=== PATIENT | male | born 1950 | race African-American/Black ===

== ENCOUNTER 2019-09-30 13:21 | Outpatient (CLI) | payer OTHER ==
[2019-09-30 10:43] LABS: #Eosinphils 0.2 thou/uL (0.0-0.7); #Lymphocytes 1.6 thou/uL (1.20-3.40); #Monocytes 0.6 thou/uL (0.11-0.59); %Basophils 0.4 % (0.0-1.0); %Eosinophils 2.4 % (0.0-10.0); %Lymphocytes 21.7 % (21.0-51.0); %Monocytes 7.8 % (0.0-10.0); %Neutrophils 67.7 % (42.0-75.0); Hemoglobin 14.7 g/dL (14.0-18.0); Mean Corpuscular HGB CONC 32.8 g/dL (32.0-36.0); Mean Corpuscular Hemoglobin 30.2 pg (27.0-31.0); Mean Corpuscular Volume 91.9 fL (78.0-98.0); Mean Platelet Volume 9.1 fL (7.4-10.4); Platelet Count 126 thou/uL (130-400); Red Blood Cell (RBC) Count 4.87 mill/uL (4.70-6.10); White Blood Cell (WBC) Count 7.4 thou/uL (4.8-10.8)
[2019-09-30 10:50] LABS: Prothrombin Time 13.5 SEC (12.0-14.7)
[2019-09-30 11:03] LABS: Anion Gap 13 mmol/L (10-20); BUN (Urea Nitrogen) 10 mg/dL (8.4-25.7); Calc. Creatinine Clearance 0 mL/min (70-130); Calcium 9.1 mg/dL (7.8-10.44); Carbon Dioxide 24 mmol/L (23-31); Chloride 110 mmol/L (98-107); Estimated GFR-MDRD 55; Glucose 87 mg/dL (80-115); Potassium 3.8 mmol/L (3.5-5.1); Sodium 143 mmol/L (136-145)
[2019-09-30 12:00] LABS: Bilirubin Negative (Negative); Blood, Urine Negative (Negative); Clarity Clear (Clear); Glucose, Urine (Dipstick) Normal (Negative); Leukocyte Negative Leu/uL (Negative); Nitrite Negative (Negative); Protein, Urine (Dipstick) Negative (Neg-Trace); RBC/HPF 0-3 HPF (0-3); Squamous Epithelial None Seen HPF (0-3); Urobilinogen Normal mg/dL (Less than 2); WBC/HPF 0-3 HPF (0-3)
[2019-09-30 12:17] LABS: Bacteria/HPF None Seen HPF (None Seen)
== END 2019-09-30 13:22 | disposition home or self-care (01) ==
LOC: LABBT 13:21
PROVIDERS: ATTEND Orthopaedic Surgery
DX: Z01.818 Encounter for other preprocedural examination (principal); M17.11 Unilateral primary osteoarthritis, right knee
CPT/HCPCS: 80048; 81001; 85025; 85610; 87081; 93005; 93010

== ENCOUNTER 2019-10-19 05:36 | Inpatient (IN) | payer OTHER ==
[2019-09-30 08:50] VITALS: BMI 25.0
[2019-10-19] MEDS ORDERED: Tranexamic Acid 1,000 MG/10 ML VIAL ONE (05:53)
[2019-10-19] MEDS ORDERED: Sodium Chloride 0.9% 100 ML ONE (05:53)
[2019-10-19] MEDS ORDERED: Vancomycin 1.5 GRAM/300 ML BAG 1.5 GM in Premix Bag 1 BAG IVPB SCH (06:00)
[2019-10-19] MEDS ORDERED: Fentanyl 100 MCG/2 ML VIAL ONE ×3 (06:08→09:50)
[2019-10-19] MEDS ORDERED: Midazolam HCl 2 mg/2 ml Vial ONE (06:27)
[2019-10-19] MEDS ORDERED: Lidocaine 1% (PF) 30 ML VIAL ONE (06:28)
[2019-10-19] MEDS ORDERED: HYDROcodone/Acetaminophen 10/325 mg Tablet PO PRN ×3 (06:59→07:22)
[2019-10-19] MEDS ORDERED: Ondansetron PF 4 MG/2 ML Vial IVP PRN ×2 (06:59→07:22)
[2019-10-19] MEDS ORDERED: Promethazine HCl 25 MG/ML VIAL IM PRN ×3 (06:59→08:47)
[2019-10-19] MEDS ORDERED: diphenhydrAMINE 25 MG CAP PO PRN (06:59)
[2019-10-19] MEDS ORDERED: Acetaminophen 325 MG TAB PO PRN ×2 (06:59→07:25)
[2019-10-19] MEDS ORDERED: Zolpidem Tartrate 5 MG TAB PO PRN ×2 (06:59→07:22)
[2019-10-19] MEDS ORDERED: Famotidine/PF 20 mg/2ml Vial ONE (07:09)
[2019-10-19] MEDS ORDERED: Ropivacaine HCl/PF 250 ML in Premix Bag 1 BAG NERVE BLCK SCH (07:22)
[2019-10-19] MEDS ORDERED: Fentanyl 100 MCG/2 ML VIAL SLOW IVP PRN (07:22)
[2019-10-19] MEDS ORDERED: traMADol HCl 50 MG TAB PO PRN ×2 (07:22)
[2019-10-19] MEDS ORDERED: Ondansetron HCl/PF 4 MG/2 ML Vial IVP PRN (08:47)
[2019-10-19] MEDS ORDERED: Promethazine HCl 25 MG/ML VIAL SLOW IVP PRN (08:47)
[2019-10-19] MEDS ORDERED: Aspirin 81 mg Enteric Coated Tablet PO SCH (09:00)
[2019-10-19] MEDS ORDERED: Lisinopril/Hydrochlorothiazide 10 mg/12.5 mg Tablet PO SCH (09:00)
[2019-10-19] MEDS ORDERED: PROPOFOL 200 MG/20 ML VIAL ONE (09:45)
[2019-10-19] MEDS ORDERED: Bupivacaine HCl 0.5%/Epinephrine 1:200,000/PF 30 ml Vial ONE (09:45)
[2019-10-19] MEDS ORDERED: ePHEDrine/0.9% NaCl/PF SYRINGE 50 mg/10 ml ONE (09:45)
[2019-10-19] MEDS ORDERED: Lidocaine 1% PF 5 ML VIAL ONE (09:45)
[2019-10-19] MEDS ORDERED: Dexamethasone 20 MG/5 ML VIAL ONE (09:45)
[2019-10-19] MEDS ORDERED: Ondansetron PF 4 MG/2 ML Vial ONE (09:45)
[2019-10-19] MEDS ORDERED: Ropivacaine 0.2% HCl/PF (40 MG/20 ML VIAL) ONE (09:45)
--- NOTE | 2019-10-19 10:12 | RAD ---
RIGHT KNEE 2 VIEWS: HISTORY: Total knee arthroplasty. FINDINGS/IMPRESSION: There are recent postop changes of total knee arthroplasty in good position and alignment. Soft tiss ue air is present. Healed fracture deformity of the right proximal fibula shaft is unchanged since . POS: OFF
--- NOTE | 2019-10-19 10:31 | OP ---
DATE OF PROCEDURE: 10/19/2019 PREOPERATIVE DIAGNOSIS: Degenerative joint disease, right knee. POSTOPERATIVE DIAGNOSIS: Degenerative joint disease, right knee. PROCEDURE PERFORMED: Right total knee arthroplasty using Keven Triathlon 5 femur, 6 tibia, 9 mm CS X3 polyethylene and A38 patella. PROCEDURE IN DETAIL: After informed consent was obtained in the preoperative holding area, the patient was taken to the operative suite where general anesthesia was induced. Once adequate level of general anesthesia was obtained, the patient was positioned and a well-padded tourniquet was placed around the right proximal thigh. The right lower extremity was then prepped and draped in the usual sterile fashion. Prior to exsanguination, a time-out was called and all members of the surgical team agreed upon site, surgeon, and patient. The extremity was then exsanguinated and the tourniquet was raised. A midline longitudinal incision was then made directly over the patella extending 2 fingerbreadths above the superior pole of the patella and 2 fingerbreadths inferior to the inferior patellar pole of the patella. Deeper subcutaneous layers were dissected sharply and local bleeding was controlled with Bovie electrocautery. A quad tendon longitudinal split was then made sharply and a median parapatellar arthrotomy was carried out both sharp and with Bovie electrocautery, carried down to 1 fingerbreadth medial to the tibial tubercle. The knee was then placed into flexion and the patella was everted nicely, and a copious fat pad ectomy was performed allowing for greater exposure of the tibia. The computer-assisted distal femoral fiducial was then placed and pinned firmly, and the distal femoral cutting guide was pinned firmly into place. The oscillating saw was then used to remove the appropriate amount of bone. The 4-in-1 cutting block was then placed on the distal femur and the oscillating saw was used to remove the appropriate amount of bone off the anterior, posterior, and chamfer cuts. After completion of bone cuts, the anterior cruciate ligament was resected sharply and the posterior cruciate ligament retractor was placed and the tibia was subluxed for better exposure. Partial meniscectomies were carried out, and the tibial computer-assisted fiducial was pinned, and the cutting guide was placed. Oscillating saw was then used to remove the bone, with Hohmann retractors used to take care and protect the collateral ligaments. After the tibial resection was performed, a laminar air intercept controller was placed in between the freshened bone cuts. The knee placed at 90 degrees and further bilateral meniscectomies were carried out, and the curved osteotome and curettage were used to remove any excess bone spurs in the posterior compartment. The trial femoral component, tibial baseplate were placed with the appropriate polyethylene trial insert with an appropriate polyethylene spacer and patellar button. The knee was taken through full range of motion with flexion and extension from 0 to 90 degrees and patellar broach squarely in the trochlea without any squinting or subluxation noted. The knee was also stable to varus and valgus stressing at 0, 15, 45, and 90 degrees of flexion. The drawer was negative. All trial components were then removed and the keel punch was used to provide the appropriate defect in the tibia with a mallet. The freshened bone cuts were copiously irrigated with pulsatile lavage of about 1.5 L to remove all excess debris. The freshened bone cuts were then dried with suction and lap sponge. The knee was placed in flexion and retractors were placed to provide access to all bone cuts. Tobramycin-impregnated methyl methacrylate cement was then placed on the freshened bone cuts and implants which were malleted firmly into place. Curettage and [place] elevators were used to remove any excess bone cement. The knee was placed into full extension and the patellar button was placed under compression, and the cement was allowed to cure. Once completed, the components were again taken through full range of motion and copious irrigation of the knee was carried out with another liter of normal saline. All components were inspected fully with full range of motion and varus and valgus stressing. There was no laxity noted and full extension was observed clinically. Primary closure was accomplished with #2 interrupted Vicryl stitch of the arthrotomy defect. This was oversewn with a #2 running Quill barbed stitch. The gravitational platelet system was then injected into the arthrotomy prior to closure. The subcutaneous layer was then closed with a running 0 barbed Monocryl stitch and skin closure accomplished with a running subcuticular 3-0 Monocryl barbed Quill stitch and augmented with cement on the skin. Tourniquet was lowered. Good spontaneous return of distal pulses was noted clinically and a sterile dressing was applied to the incision. The procedure was terminated without any complications. The patient was awakened in the operative suite, and the patient was taken to the recovery room in stable condition. FOUNDRY PATTERNMAKER: Lillie Mejias PA-C Job ID: [id number]
[2019-10-19] MEDS: Allopurinol 100 MG TAB PO SCH ×2 (10:50→20:26)
[2019-10-19] MEDS: Sodium Chloride 0.9% 1,000 ML IV SCH ×3 (10:50→20:41)
[2019-10-19] MEDS: Famotidine 20 MG TAB PO SCH ×2 (10:51→20:26)
[2019-10-19] MEDS: Aspirin 81 mg Enteric Coated Tablet PO SCH ×2 (10:51→20:26)
[2019-10-19] MEDS ORDERED: Prevnar 13-Val Conj/PF 0.5 ML SYRINGE IM ONE (11:30)
[2019-10-19] MEDS: Ketorolac Tromethamine 30 MG/ML VIAL IVP SCH ×3 (11:50→23:28)
[2019-10-19] MEDS: CEFAZOLIN 2 GM in Premix Bag 1 BAG IVPB SCH ×2 (13:56→20:26)
[2019-10-19] MEDS: HYDROcodone/Acetaminophen 10/325 mg Tablet PO PRN (15:01)
--- NOTE | 2019-10-19 15:14 | PDOC.HOSPP ---
- Subjective Encounter Date: 10/19/19 Encounter Time: 14:00 Subjective: Patient seen and examined. No new complaints. s/p Rt TKR consulted for medical management - Objective Vital Signs & Weight: Vital Signs (12 hours) Temp Pulse Resp BP Pulse Ox 10/19/19 10:51 65 10/19/19 10:20 98.4 F 65 20 146/71 H 93 L Weight Weight 179 lb Additional Labs: old labs reviewed Radiology Reviewed by me: Yes (Knee xray) EKG Reviewed by me: Yes (NSR) Hospitalist ROS - Review of Systems Eyes: denies: pain, vision change, conjunctivae inflammation, eyelid inflammation, redness, other ENT: denies: ear pain, ear discharge, nose pain, nose discharge, nose congestion , mouth pain, mouth swelling, throat pain, throat swelling, other Respiratory: denies: cough, dry, shortness of breath, hemoptysis, SOB with excertion, pleuritic pain, sputum, wheezing, other Cardiovascular: denies: chest pain, palpitations, orthopnea, paroxysmal noc. dyspnea, edema, light headedness, other Gastrointestinal: denies: nausea, vomiting, abdominal pain, diarrhea, constipation, melena, hematochezia, other Genitourinary: denies: dysuria, frequency, incontinence, hematuria, retention, other Musculoskeletal: denies: neck pain, shoulder pain, arm pain, back pain, hand pain, leg pain, foot pain, other Skin: denies: rash, lesions, neil, bruising, other - Medication Medications: Active Medications Generic Name Dose Route Start Last Admin Trade Name Freq PRN Reason Stop Dose Admin Hydrocodone Bitart/Acetaminophen 2 tab 10/19/19 07:22 10/19/19 15:01 [place] 10/325 PO 2 tab Q4H PRN Administration PAIN (4-6) Allopurinol 100 mg 10/19/19 09:00 10/19/19 10:50 Zyloprim PO Not Given BID ARTURO Aspirin 81 mg 10/19/19 09:00 10/19/19 10:51 Ecotrin PO Not Given BID ARTURO Famotidine 20 mg 10/19/19 09:00 10/19/19 10:51 Pepcid PO Not Given BID ARTURO Lisinopril/HCTZ 1 tab 10/19/19 09:00 01/07/20 10:51 Prinizide 10-12.5 PO Not Given DAILY ARTURO Cefazolin Sodium/Dextrose 2 gm 50 mls @ 100 mls/hr 10/19/19 14:00 10/19/19 13 :56 / Device IVPB 10/19/19 22:29 50 mls Q8HR ARTURO Administration Sodium Chloride 1,000 mls @ 100 mls/hr 10/19/19 07:00 10/19/19 10:50 Normal Saline 0.9% IV Not Given .Q10H ARTURO Ketorolac Tromethamine 15 mg 10/19/19 12:00 10/19/19 11:50 Toradol IVP 10/21/19 06:01 15 mg Q6HR ARTURO Administration - Exam General Appearance: NAD, awake alert Eye: PERRL, anicteric sclera ENT: normocephalic atraumatic, no oropharyngeal lesions Neck: supple, symmetric Heart: RRR, no murmur, no gallops, no rubs, normal peripheral pulses Respiratory: CTAB, no wheezes, no rales, no ronchi Gastrointestinal: soft, non-tender, non-distended, normal bowel sounds Extremities: no cyanosis, no clubbing Extremities - other findings: right knee with dressing Skin: normal turgor, no lesions Neurological: cranial nerve grossly intact, no focal deficits Musculoskeletal: normal tone, normal strength Psychiatric: normal affect, normal behavior Hosp A/P (1) Status post total right knee replacement Code(s): Z96.651 - PRESENCE OF RIGHT ARTIFICIAL KNEE JOINT Status: Acute (2) Hypertension Code(s): I10 - ESSENTIAL (PRIMARY) HYPERTENSION Status: Chronic (3) Gout Code(s): M10.9 - GOUT, UNSPECIFIED Status: Chronic (4) Osteoarthritis Code(s): M19.90 - UNSPECIFIED OSTEOARTHRITIS, UNSPECIFIED SITE Status: Chronic (5) Anxiety and depression Code(s): F41.9 - ANXIETY DISORDER, UNSPECIFIED; F32.9 - MAJOR DEPRESSIVE DISORDER, SINGLE EPISODE, UNSPECIFIED Status: Chronic (6) GERD (gastroesophageal reflux disease) Code(s): K21.9 - GASTRO-ESOPHAGEAL REFLUX DISEASE WITHOUT ESOPHAGITIS Status: Chronic (7) Dyslipidemia Code(s): E78.5 - HYPERLIPIDEMIA, UNSPECIFIED Status: Chronic - Plan old records reviewed/req, PT/OT I have seen and examined pt bedside, updated plan to family, continue PT/OT as per [facility] protocol, continue aspirin for DVT prophylaxis as per [facility] protocol, medically stable with current treatment, home medication reconciled. Pain controlled. Nerve block as per anesthesia
[2019-10-19] MEDS ORDERED: Melatonin 3 MG TAB PO SCH (21:00)
[2019-10-19] MEDS ORDERED: Atorvastatin Calcium 10 MG TAB PO SCH (21:00)
[2019-10-19] MEDS ORDERED: Mirtazapine 30 MG Soltab PO SCH (21:00)
[2019-10-19] MEDS ORDERED: traZODone HCl 50 MG TAB PO SCH (21:00)
[2019-10-20] MEDS: Ketorolac Tromethamine 30 MG/ML VIAL IVP SCH ×2 (05:35→11:40)
[2019-10-20 05:40] LABS: Hemoglobin 12.2 g/dL (14.0-18.0); Mean Corpuscular HGB CONC 33.1 g/dL (32.0-36.0); Mean Corpuscular Volume 90.6 fL (78.0-98.0); Mean Platelet Volume 9.1 fL (7.4-10.4); Platelet Count 102 thou/uL (130-400); RBC Distribution Width 12.7 % (11.5-14.5); Red Blood Cell (RBC) Count 4.07 mill/uL (4.70-6.10); White Blood Cell (WBC) Count 11.7 thou/uL (4.8-10.8)
[2019-10-20] MEDS ORDERED: hydrALAZINE 20 MG/ML VIAL SLOW IVP PRN ×2 (07:05→15:16)
[2019-10-20] MEDS ORDERED: Polyethylene Glycol 3350 17 GM Packet PO PRN ×2 (07:06→15:17)
[2019-10-20] MEDS: Allopurinol 100 MG TAB PO SCH ×2 (08:34→20:13)
[2019-10-20] MEDS: Aspirin 81 mg Enteric Coated Tablet PO SCH ×2 (08:34→20:09)
[2019-10-20] MEDS: Famotidine 20 MG TAB PO SCH ×2 (08:35→20:10)
[2019-10-20] MEDS ORDERED: Senokot S 8.6-50 MG TAB PO SCH (09:00)
[2019-10-20] MEDS ORDERED: Multivitamin W/ Minerals 1 TAB PO SCH (09:00)
[2019-10-20] MEDS ORDERED: Ferrous Gluconate 324 MG TAB PO SCH (09:00)
[2019-10-20] MEDS ORDERED: Ketorolac Tromethamine 30 MG/ML VIAL ONE (11:39)
--- NOTE | 2019-10-20 12:30 | PRG ---
DATE OF SERVICE: 10/20/2019 SUBJECTIVE: J Luis is a 69-year-old male, postoperative day 1 from a right total knee arthroplasty. He is doing relatively well. He ambulated short distances yesterday evening postoperatively, and he only ambulated 14 to 20 feet this morning. Pain is relatively well controlled. He appears comfortable. OBJECTIVE: VITAL SIGNS: Temperature 98, pulse 66, respiratory rate 16 and unlabored, blood pressure is 112/69. GENERAL: He is alert and oriented to person, place, time, and situation; responsive; appropriate with examiner; nonfocal. EXTREMITIES: His incision is clean. There is no strikethrough. No erythema. He is neurovascularly intact in the right lower extremity. LABORATORY DATA: Hemoglobin and hematocrit 12.2 and 36.9. IMPRESSION: A 69-year-old male, postoperative day 1 right total knee arthroplasty, slow with progression. PLAN: Re-evaluate tomorrow. Give consideration to home discharge or also consider skilled consult if his milestones for ADLs and independence are met. Job ID: [id number]
[2019-10-20] MEDS: Sodium Chloride 0.9% 1,000 ML IV SCH ×3 (14:53→20:14)
[2019-10-20] MEDS ORDERED: HYDROcodone/Acetaminophen 10/325 mg Tablet PO PRN (15:06)
[2019-10-20] MEDS: HYDROcodone/Acetaminophen 10/325 mg Tablet PO PRN ×2 (15:12→19:16)
[2019-10-20] MEDS ORDERED: diphenhydrAMINE 25 MG CAP PO PRN (15:12)
[2019-10-20] MEDS ORDERED: traMADol HCl 50 MG TAB PO PRN (15:15)
[2019-10-20] MEDS ORDERED: Ropivacaine HCl/PF 250 ML in Premix Bag 1 BAG NERVE BLCK SCH (15:15)
[2019-10-20] MEDS ORDERED: Acetaminophen 325 MG TAB PO PRN (15:16)
[2019-10-20] MEDS ORDERED: Ondansetron PF 4 MG/2 ML Vial IVP PRN (15:16)
[2019-10-20] MEDS ORDERED: Zolpidem Tartrate 5 MG TAB PO PRN (15:16)
[2019-10-20] MEDS ORDERED: Fentanyl 100 MCG/2 ML VIAL SLOW IVP PRN (15:16)
[2019-10-20] MEDS: Ketorolac Tromethamine 30 MG/ML VIAL IM/IV SCH ×2 (19:15→23:13)
[2019-10-20] MEDS ORDERED: Amlodipine 5 MG TAB PO PRN (19:45)
--- NOTE | 2019-10-20 19:48 | PDOC.HOSPP ---
- Subjective Encounter Date: 10/20/19 Encounter Time: 17:00 Subjective: Patient seen and examined for med mngt. Pain controlled. No fever or chills. No new complaints. No overnight events - Objective Vital Signs & Weight: Vital Signs (12 hours) Temp Pulse Resp BP Pulse Ox 10/20/19 15:29 98.3 F 71 16 141/76 H 93 L 10/20/19 12:41 98.0 F 67 16 123/64 96 Weight Admit Weight 179 lb Weight 179 lb I&O: 10/19/19 10/20/19 10/21/19 06:59 06:59 06:59 Intake Total 1800 Output Total 1400 Balance 400 Result Diagrams: 10/20/19 05:02 Additional Labs: Laboratory Tests 09/30/19 09:43 Creatinine 1.54 H Estimated GFR (MDRD) 55 Radiology Reviewed by me: Yes (Knee XR - reviewed) Hospitalist ROS - Review of Systems Cardiovascular: denies: chest pain, palpitations, orthopnea, paroxysmal noc. dyspnea, edema, light headedness, other Gastrointestinal: denies: nausea, vomiting, abdominal pain, diarrhea, constipation, melena, hematochezia, other - Medication Medications: Active Medications Generic Name Dose Route Start Last Admin Trade Name Freq PRN Reason Stop Dose Admin Hydrocodone Bitart/Acetaminophen 2 tab 10/20/19 15:06 10/20/19 19:16 [place] 10/325 PO 2 tab Q4H PRN Administration PAIN (4-6) Sodium Chloride 1,000 mls @ 100 mls/hr 10/20/19 15:15 10/20/19 16:29 Normal Saline 0.9% IV Not Given .Q10H [facility] Ketorolac Tromethamine 15 mg 10/20/19 18:00 10/20/19 19:15 Toradol IM/IV 10/21/19 06:01 Not Given Q6HR ARTURO - Exam Heart: RRR, no gallops Respiratory: no wheezes, no rales, no ronchi Gastrointestinal: soft, non-tender, non-distended, normal bowel sounds Hosp A/P - Plan DVT proph w/SCDs HTN CKD 3 HLD Gout DJD PLAN: Hold Lisinopril/HCTZ Add Amlodipine PRN BMP in AM Cont PT/OT DVT prophylaxis
[2019-10-20] MEDS: Ferrous Gluconate 324 MG TAB PO SCH (20:09)
[2019-10-20] MEDS: Melatonin 3 MG TAB PO SCH (20:10)
[2019-10-20] MEDS: traZODone HCl 50 MG TAB PO SCH (20:10)
[2019-10-20] MEDS: Senokot S 8.6-50 MG TAB PO SCH (20:11)
[2019-10-20] MEDS: Mirtazapine 30 MG Soltab PO SCH (20:11)
[2019-10-20] MEDS: Atorvastatin Calcium 10 MG TAB PO SCH (20:11)
[2019-10-21] MEDS: traMADol HCl 50 MG TAB PO PRN ×2 (05:03→19:16)
[2019-10-21] MEDS: Ketorolac Tromethamine 30 MG/ML VIAL IM/IV SCH (05:04)
[2019-10-21 05:29] LABS: Hemoglobin 12.2 g/dL (14.0-18.0); Mean Corpuscular HGB CONC 32.9 g/dL (32.0-36.0); Mean Corpuscular Hemoglobin 30.2 pg (27.0-31.0); Mean Corpuscular Volume 91.9 fL (78.0-98.0); Mean Platelet Volume 9.1 fL (7.4-10.4); Platelet Count 107 thou/uL (130-400); RBC Distribution Width 12.7 % (11.5-14.5); Red Blood Cell (RBC) Count 4.04 mill/uL (4.70-6.10); White Blood Cell (WBC) Count 14.2 thou/uL (4.8-10.8)
[2019-10-21 05:40] LABS: Anion Gap 11 mmol/L (10-20); BUN (Urea Nitrogen) 15 mg/dL (8.4-25.7); Calc. Creatinine Clearance 62 mL/min (70-130); Calcium 8.4 mg/dL (7.8-10.44); Carbon Dioxide 27 mmol/L (23-31); Chloride 106 mmol/L (98-107); Estimated GFR-MDRD 66; Glucose 124 mg/dL (80-115); Potassium 3.6 mmol/L (3.5-5.1); Sodium 140 mmol/L (136-145)
[2019-10-21] MEDS: HYDROcodone/Acetaminophen 10/325 mg Tablet PO PRN ×2 (08:54→14:25)
[2019-10-21] MEDS: Allopurinol 100 MG TAB PO SCH ×2 (08:56→19:16)
[2019-10-21] MEDS: Multivitamin W/ Minerals 1 TAB PO SCH (08:56)
[2019-10-21] MEDS: Aspirin 81 mg Enteric Coated Tablet PO SCH ×2 (08:56→19:15)
[2019-10-21] MEDS: Ferrous Gluconate 324 MG TAB PO SCH ×2 (08:56→19:15)
[2019-10-21] MEDS: Famotidine 20 MG TAB PO SCH ×2 (08:56→19:16)
[2019-10-21] MEDS: Senokot S 8.6-50 MG TAB PO SCH ×2 (08:57→19:15)
[2019-10-21] MEDS: Lisinopril/Hydrochlorothiazide 10 mg/12.5 mg Tablet PO SCH (09:09)
[2019-10-21] MEDS: Sodium Chloride 0.9% 1,000 ML IV SCH (11:04)
--- NOTE | 2019-10-21 12:13 | PRG ---
DATE OF SERVICE: 10/21/2019 SUBJECTIVE: J Luis is a 69-year-old male, who is postoperative day 2 from a right total knee arthroplasty. His progress has been slow. He is only ambulating 10 to 12 feet with assistance of therapy. Recommendations at this point are for a halfway facility. OBJECTIVE: VITAL SIGNS: Temperature 98.6, pulse 78, respiratory rate 16, blood pressure 173/78. GENERAL: He is alert and oriented to person, place, time, and situation; responsive and appropriate with examiner; grossly nonfocal. EXTREMITIES: Incision is clean. There is no strikethrough. He is neurovascularly intact in both lower extremities. LABORATORY DATA: Hemoglobin and hematocrit 12.2 and 37.1. IMPRESSION: A 69-year-old male, postoperative day 2 right total knee arthroplasty with slow activities of daily living and milestones of activities of daily living and independence. PLAN: Follow up on the skilled facility referral, and placement is pending. Job ID: [id number]
[2019-10-21] MEDS ORDERED: cloNIDine 0.1 MG TAB PO PRN (15:47)
--- NOTE | 2019-10-21 17:49 | PDOC.HOSPP ---
- Subjective Encounter Date: 10/21/19 Encounter Time: 12:00 Subjective: Patient seen and examined for med mngt. Pain controlled. No new complaints. No overnight events - Objective Vital Signs & Weight: Vital Signs (12 hours) Temp Pulse Resp BP BP Pulse Ox 10/21/19 15:05 98.6 F 76 16 162/78 H 93 L 10/21/19 11:40 98.0 F 73 14 172/75 H 97 10/21/19 07:35 98.6 F 78 16 173/78 H 96 Weight Admit Weight 179 lb Weight 179 lb I&O: 10/20/19 10/21/19 10/22/19 06:59 06:59 06:59 Intake Total 1800 510 900 Output Total 1400 0 Balance 400 510 900 Result Diagrams: 10/21/19 05:00 10/21/19 05:00 Hospitalist ROS - Review of Systems Respiratory: denies: cough, dry, shortness of breath, hemoptysis, SOB with excertion, pleuritic pain, sputum, wheezing, other Cardiovascular: denies: chest pain, palpitations, orthopnea, paroxysmal noc. dyspnea, edema, light headedness, other - Medication Medications: Active Medications Generic Name Dose Route Start Last Admin Trade Name Freq PRN Reason Stop Dose Admin Hydrocodone Bitart/Acetaminophen 2 tab 10/20/19 15:06 10/21/19 14:25 [place] 10/325 PO 2 tab Q4H PRN Administration PAIN (4-6) Allopurinol 100 mg 10/20/19 21:00 10/21/19 08:56 Zyloprim PO 100 mg BID ARTURO Administration Aspirin 81 mg 10/20/19 21:00 10/21/19 08:56 Ecotrin PO 81 mg BID ARTURO Administration Atorvastatin Calcium 10 mg 10/20/19 21:00 10/20/19 20:11 Lipitor PO 10 mg HS ARTURO Administration Famotidine 20 mg 10/20/19 21:00 10/21/19 08:56 Pepcid PO 20 mg BID ARTURO Administration Ferrous Gluconate 324 mg 10/20/19 21:00 10/21/19 08:56 Fergon PO 324 mg BID ARTURO Administration Lisinopril/HCTZ 1 tab 10/21/19 09:00 10/21/19 09:09 Prinizide 10-12.5 PO 1 tab DAILY ARTURO Administration Iron/Minerals/Multivitamins 1 tab 10/21/19 09:00 10/21/19 08:56 Theragran M PO 1 tab DAILY ARTURO Administration Melatonin 6 mg 10/20/19 21:00 10/20/19 20:10 Melatonin PO 6 mg HS ARTURO Administration Mirtazapine 60 mg 10/20/19 21:00 10/20/19 20:11 Remeron Soltab PO 60 mg HS ARTURO Administration Senna/Docusate Sodium 2 tab 10/20/19 21:00 10/21/19 08:57 Senokot S PO 2 tab BID ARTURO Administration Tramadol HCl 100 mg 10/20/19 15:16 10/21/19 05:03 Ultram PO 100 mg Q6H PRN Administration Moderate Pain 4-6 Trazodone HCl 200 mg 10/20/19 21:00 10/20/19 20:10 Desyrel PO 200 mg HS ARTURO Administration - Exam General Appearance: NAD Heart: RRR, no gallops Respiratory: CTAB, no rales Gastrointestinal: soft, non-distended Extremities: no cyanosis Neurological: no new deficit Hosp A/P - Plan DVT proph w/SCDs HTN CKD 3 HLD Gout DJD PLAN: Lisinopril/HCTZ restarted Add Amlodipine PRN BMP in AM Cont PT/OT DVT prophylaxis
[2019-10-21] MEDS: traZODone HCl 50 MG TAB PO SCH (19:14)
[2019-10-21] MEDS: Atorvastatin Calcium 10 MG TAB PO SCH (19:15)
[2019-10-21] MEDS: Mirtazapine 30 MG Soltab PO SCH (19:15)
[2019-10-21] MEDS: Melatonin 3 MG TAB PO SCH (19:16)
[2019-10-22] MEDS: Aspirin 81 mg Enteric Coated Tablet PO SCH ×2 (07:37→23:57)
[2019-10-22] MEDS: Senokot S 8.6-50 MG TAB PO SCH ×2 (07:37→21:05)
[2019-10-22] MEDS: Allopurinol 100 MG TAB PO SCH ×2 (07:37→21:04)
[2019-10-22] MEDS: Lisinopril/Hydrochlorothiazide 10 mg/12.5 mg Tablet PO SCH (07:37)
[2019-10-22] MEDS: Ferrous Gluconate 324 MG TAB PO SCH ×2 (07:37→21:04)
[2019-10-22] MEDS: HYDROcodone/Acetaminophen 10/325 mg Tablet PO PRN ×2 (07:38→19:29)
[2019-10-22] MEDS: Multivitamin W/ Minerals 1 TAB PO SCH (07:43)
[2019-10-22] MEDS: Famotidine 20 MG TAB PO SCH ×2 (07:52→21:05)
[2019-10-22] MEDS: Atorvastatin Calcium 10 MG TAB PO SCH (21:04)
[2019-10-22] MEDS: traZODone HCl 50 MG TAB PO SCH (21:04)
[2019-10-22] MEDS: Mirtazapine 30 MG Soltab PO SCH (21:05)
[2019-10-22] MEDS: Melatonin 3 MG TAB PO SCH (21:05)
[2019-10-23] MEDS: Lisinopril/Hydrochlorothiazide 10 mg/12.5 mg Tablet PO SCH (09:39)
[2019-10-23] MEDS: Ferrous Gluconate 324 MG TAB PO SCH ×2 (09:39→20:47)
[2019-10-23] MEDS: Allopurinol 100 MG TAB PO SCH ×2 (09:40→20:46)
[2019-10-23] MEDS: Senokot S 8.6-50 MG TAB PO SCH ×2 (09:40→20:46)
[2019-10-23] MEDS: Multivitamin W/ Minerals 1 TAB PO SCH (09:40)
[2019-10-23] MEDS: Famotidine 20 MG TAB PO SCH ×2 (09:41→20:45)
[2019-10-23] MEDS: Aspirin 81 mg Enteric Coated Tablet PO SCH ×3 (09:44→20:46)
[2019-10-23 11:21] LABS: #Eosinphils 0.2 thou/uL (0.0-0.7); #Lymphocytes 1.2 thou/uL (1.20-3.40); #Monocytes 1.2 thou/uL (0.11-0.59); #Neutrophils 9.3 thou/uL (1.40-6.50); %Basophils 0.2 % (0.0-1.0); %Eosinophils 1.5 % (0.0-10.0); %Monocytes 9.7 % (0.0-10.0); %Neutrophils 78.7 % (42.0-75.0); Hemoglobin 11.5 g/dL (14.0-18.0); Mean Corpuscular HGB CONC 33.7 g/dL (32.0-36.0); Mean Corpuscular Hemoglobin 30.8 pg (27.0-31.0); Mean Corpuscular Volume 91.5 fL (78.0-98.0); Mean Platelet Volume 8.8 fL (7.4-10.4); Platelet Count 119 thou/uL (130-400); RBC Distribution Width 12.6 % (11.5-14.5); Red Blood Cell (RBC) Count 3.73 mill/uL (4.70-6.10); White Blood Cell (WBC) Count 11.9 thou/uL (4.8-10.8)
[2019-10-23 11:36] LABS: Anion Gap 12 mmol/L (10-20); BUN (Urea Nitrogen) 15 mg/dL (8.4-25.7); Calc. Creatinine Clearance 63 mL/min (70-130); Calcium 9.1 mg/dL (7.8-10.44); Carbon Dioxide 30 mmol/L (23-31); Chloride 101 mmol/L (98-107); Estimated GFR-MDRD 66; Glucose 110 mg/dL (80-115); Potassium 3.7 mmol/L (3.5-5.1); Sodium 139 mmol/L (136-145)
--- NOTE | 2019-10-23 15:52 | PDOC.HOSPP ---
- Subjective Encounter Date: 10/23/19 Encounter Time: 07:40 Subjective: Pt seen for followup re; hypertension. Pt had hematuria. - Objective Vital Signs & Weight: Vital Signs (12 hours) Temp Pulse Resp BP BP BP Pulse Ox 10/23/19 14:55 99.3 F 87 20 134/74 95 10/23/19 11:12 99.3 F 88 22 H 155/72 H 96 10/23/19 09:41 78 152/76 H 10/23/19 09:39 78 152/76 H 10/23/19 08:45 94 L 10/23/19 07:15 98.7 F 77 20 152/76 H 94 L 10/23/19 04:09 98.7 F 83 18 153/80 H 96 Weight Admit Weight 179 lb Weight 179 lb I&O: 10/22/19 10/23/19 10/24/19 06:59 06:59 06:59 Intake Total 1300 1140 Output Total 625 1200 Balance 675 -60 Result Diagrams: 10/23/19 10:58 10/23/19 10:58 Additional Labs: labs and MARs reviewed by ak Hospitalist ROS - Review of Systems Respiratory: denies: cough, shortness of breath, SOB with excertion, pleuritic pain, wheezing Cardiovascular: denies: chest pain, palpitations, orthopnea, paroxysmal noc. dyspnea, edema, light headedness - Medication Medications: Active Medications Generic Name Dose Route Start Last Admin Trade Name Freq PRN Reason Stop Dose Admin Hydrocodone Bitart/Acetaminophen 2 tab 10/20/19 15:06 10/22/19 19:29 [place] 10/325 PO 2 tab Q4H PRN Administration PAIN (4-6) Allopurinol 100 mg 10/20/19 21:00 10/23/19 09:40 Zyloprim PO 100 mg BID ARTURO Administration Amlodipine Besylate 5 mg 10/20/19 19:45 10/23/19 09:41 Norvasc PO 5 mg DAILY PRN Administration SBP GREATER THAN 160 Aspirin 81 mg 10/20/19 21:00 10/23/19 09:45 Ecotrin PO Not Given BID ARTURO Atorvastatin Calcium 10 mg 10/20/19 21:00 10/22/19 21:04 Lipitor PO 10 mg HS ARTURO Administration Famotidine 20 mg 10/20/19 21:00 10/23/19 09:41 Pepcid PO 20 mg BID ARTURO Administration Ferrous Gluconate 324 mg 10/20/19 21:00 10/23/19 09:39 Fergon PO 324 mg BID ARTURO Administration Lisinopril/HCTZ 1 tab 10/21/19 09:00 10/23/19 09:39 Prinizide 10-12.5 PO 1 tab DAILY ARTURO Administration Iron/Minerals/Multivitamins 1 tab 10/21/19 09:00 10/23/19 09:40 Theragran M PO 1 tab DAILY ARTURO Administration Melatonin 6 mg 10/20/19 21:00 10/22/19 21:05 Melatonin PO 6 mg HS ARTURO Administration Mirtazapine 60 mg 10/20/19 21:00 10/22/19 21:05 Remeron Soltab PO 60 mg HS ARTURO Administration Senna/Docusate Sodium 2 tab 10/20/19 21:00 10/23/19 09:40 Senokot S PO 2 tab BID ARTURO Administration Sodium Chloride 10 ml 10/20/19 15:14 10/21/19 19:19 Flush - Normal Saline IVF 10 ml PRN PRN Administration Saline Flush Tramadol HCl 50 mg 10/20/19 15:15 10/23/19 09:42 Ultram PO 50 mg Q6H PRN Administration Mild Pain (1-3) Tramadol HCl 100 mg 10/20/19 15:16 10/21/19 19:16 Ultram PO 100 mg Q6H PRN Administration Moderate Pain 4-6 Trazodone HCl 200 mg 10/20/19 21:00 10/22/19 21:04 Desyrel PO 200 mg HS ARTURO Administration - Exam General Appearance: NAD Eye: anicteric sclera ENT: moist mucosa Neck: supple Heart: RRR Respiratory: CTAB Gastrointestinal: soft, non-tender Psychiatric: normal affect, normal behavior, oriented to person, oriented to place Hosp A/P - Plan Hosp A/P - Plan HTN CKD 3 HLD Gout DJD PLAN: HTN controlled Check CBC, Chem 7 Cont PT/OT Monitor for hematuria. May need urology consult if it persists.
[2019-10-23] MEDS: traMADol HCl 50 MG TAB PO PRN (18:17)
[2019-10-23] MEDS: HYDROcodone/Acetaminophen 10/325 mg Tablet PO PRN (20:45)
[2019-10-23] MEDS: Melatonin 3 MG TAB PO SCH (20:46)
[2019-10-23] MEDS: Atorvastatin Calcium 10 MG TAB PO SCH (20:46)
[2019-10-23] MEDS: Mirtazapine 30 MG Soltab PO SCH (20:47)
[2019-10-23] MEDS: traZODone HCl 50 MG TAB PO SCH (22:40)
[2019-10-24 05:19] LABS: #Basophils 0.1 thou/uL (0.0-0.2); #Eosinphils 0.3 thou/uL (0.0-0.7); #Lymphocytes 1.7 thou/uL (1.20-3.40); #Monocytes 1.1 thou/uL (0.11-0.59); #Neutrophils 8.1 thou/uL (1.40-6.50); %Basophils 0.7 % (0.0-1.0); %Eosinophils 2.7 % (0.0-10.0); %Lymphocytes 14.9 % (21.0-51.0); %Monocytes 10.1 % (0.0-10.0); %Neutrophils 71.6 % (42.0-75.0); Mean Corpuscular HGB CONC 33.4 g/dL (32.0-36.0); Mean Corpuscular Hemoglobin 30.3 pg (27.0-31.0); Mean Corpuscular Volume 90.7 fL (78.0-98.0); Mean Platelet Volume 9.2 fL (7.4-10.4); Platelet Count 137 thou/uL (130-400); RBC Distribution Width 12.7 % (11.5-14.5); Red Blood Cell (RBC) Count 3.63 mill/uL (4.70-6.10); White Blood Cell (WBC) Count 11.3 thou/uL (4.8-10.8)
[2019-10-24 05:41] LABS: Anion Gap 12 mmol/L (10-20); BUN (Urea Nitrogen) 17 mg/dL (8.4-25.7); Calc. Creatinine Clearance 62 mL/min (70-130); Calcium 8.8 mg/dL (7.8-10.44); Carbon Dioxide 30 mmol/L (23-31); Chloride 99 mmol/L (98-107); Estimated GFR-MDRD 66; Glucose 104 mg/dL (80-115); Potassium 3.6 mmol/L (3.5-5.1); Sodium 137 mmol/L (136-145)
[2019-10-24] MEDS: Senokot S 8.6-50 MG TAB PO SCH ×2 (08:31→20:30)
[2019-10-24] MEDS: Multivitamin W/ Minerals 1 TAB PO SCH (08:32)
[2019-10-24] MEDS: Lisinopril/Hydrochlorothiazide 10 mg/12.5 mg Tablet PO SCH (08:32)
[2019-10-24] MEDS: Allopurinol 100 MG TAB PO SCH ×2 (08:32→20:30)
[2019-10-24] MEDS: Famotidine 20 MG TAB PO SCH ×2 (08:32→20:29)
[2019-10-24] MEDS: Ferrous Gluconate 324 MG TAB PO SCH ×2 (08:32→20:30)
[2019-10-24] MEDS: Aspirin 81 mg Enteric Coated Tablet PO SCH ×2 (08:38→21:15)
[2019-10-24] MEDS: HYDROcodone/Acetaminophen 10/325 mg Tablet PO PRN ×2 (10:11→18:51)
[2019-10-24] MEDS: Sodium Chloride 0.9% 500 ML IVPB SCH ×2 (10:50→15:06)
[2019-10-24] MEDS ORDERED: Iopamidol-370 76% 500 ML 1 ML ONE (11:33)
--- NOTE | 2019-10-24 12:20 | PDOC.HOSPP ---
- Subjective Encounter Date: 10/24/19 Encounter Time: 08:40 Subjective: Pt seen for followup re: hematuria. Nursing staff report hematuria is ongoing. - Objective Vital Signs & Weight: Vital Signs (12 hours) Temp Pulse Resp BP BP BP Pulse Ox 10/24/19 08:32 79 131/56 L 10/24/19 07:20 98.8 F 79 16 131/56 L 94 L 10/24/19 04:13 98.4 F 78 18 115/63 96 Weight Admit Weight 179 lb Weight 179 lb I&O: 10/23/19 10/24/19 10/25/19 06:59 06:59 06:59 Intake Total 1140 1400 Output Total 1200 450 Balance -60 950 Result Diagrams: 10/24/19 04:31 10/24/19 04:31 Additional Labs: Labs and MARs reviewed by mt Hospitalist ROS - Review of Systems Cardiovascular: denies: chest pain, palpitations, orthopnea, paroxysmal noc. dyspnea, edema, light headedness Genitourinary: reports: hematuria. denies: dysuria, frequency, incontinence, retention - Medication Medications: Active Medications Generic Name Dose Route Start Last Admin Trade Name Freq PRN Reason Stop Dose Admin Hydrocodone Bitart/Acetaminophen 2 tab 10/20/19 15:06 10/24/19 10:11 [place] 10/325 PO 2 tab Q4H PRN Administration PAIN (4-6) Allopurinol 100 mg 10/20/19 21:00 10/24/19 08:32 Zyloprim PO 100 mg BID ARTURO Administration Amlodipine Besylate 5 mg 10/20/19 19:45 10/23/19 09:41 Norvasc PO 5 mg DAILY PRN Administration SBP GREATER THAN 160 Aspirin 81 mg 10/20/19 21:00 10/24/19 08:38 Ecotrin PO Not Given BID ARTURO Atorvastatin Calcium 10 mg 10/20/19 21:00 10/23/19 20:46 Lipitor PO 10 mg HS ARTURO Administration Famotidine 20 mg 10/20/19 21:00 10/24/19 08:32 Pepcid PO 20 mg BID ARTURO Administration Ferrous Gluconate 324 mg 10/20/19 21:00 10/24/19 08:32 Fergon PO 324 mg BID ARTURO Administration Lisinopril/HCTZ 1 tab 10/21/19 09:00 10/24/19 08:32 Prinizide 10-12.5 PO 1 tab DAILY ARTURO Administration Sodium Chloride 500 mls @ 999 mls/hr 10/24/19 10:30 10/24/19 10:50 Normal Saline 0.9% IVPB 10/24/19 15:00 500 mls [place]CALL ARTURO Administration Iron/Minerals/Multivitamins 1 tab 10/21/19 09:00 10/24/19 08:32 Theragran M PO 1 tab DAILY ARTURO Administration Melatonin 6 mg 10/20/19 21:00 10/23/19 20:46 Melatonin PO 6 mg HS ARTURO Administration Mirtazapine 60 mg 10/20/19 21:00 10/23/19 20:47 Remeron Soltab PO 60 mg HS ARTURO Administration Senna/Docusate Sodium 2 tab 10/20/19 21:00 10/24/19 08:31 Senokot S PO 2 tab BID ARTURO Administration Sodium Chloride 10 ml 10/20/19 15:14 10/21/19 19:19 Flush - Normal Saline IVF 10 ml PRN PRN Administration Saline Flush Tramadol HCl 50 mg 10/20/19 15:15 10/23/19 09:42 Ultram PO 50 mg Q6H PRN Administration Mild Pain (1-3) Tramadol HCl 100 mg 10/20/19 15:16 10/23/19 18:17 Ultram PO 100 mg Q6H PRN Administration Moderate Pain 4-6 Trazodone HCl 200 mg 10/20/19 21:00 10/23/19 22:40 Desyrel PO 200 mg HS ARTURO Administration - Exam General Appearance: NAD Eye: anicteric sclera ENT: moist mucosa Neck: supple Heart: RRR Respiratory: CTAB Gastrointestinal: soft, non-tender Musculoskeletal: no muscle wasting Psychiatric: normal affect, normal behavior Hosp A/P - Plan PT/OT, out of bed/ambulate Hosp A/P Assessment: Hematuria HTN CKD 3 HLD Gout DJD - Plan Urology consult HTN controlled Cont PT/OT
--- NOTE | 2019-10-24 12:44 | PRG ---
DATE OF SERVICE: 10/24/2019 SUBJECTIVE: The patient overall has no significant complaints about his right knee. At this time, he is having a large problem with urination. The patient has noted during this hospital stay blood upon urination and at this time is trying to urinate for a specimen. OBJECTIVE: VITAL SIGNS: The patient is afebrile. His vital signs were stable. MUSCULOSKELETAL: On his exam, he has a bio-occlusive dressing on the right knee. There is a scant amount of blood equivalent to a couple of drops on the pad, but it is in good condition. He is neurovascularly intact to the right leg. His calf is soft and nontender. He is bending nearly 90 degrees and has essentially full extension at this time as well. LABORATORY DATA: His hemoglobin is stable at greater than 11. White count is within normal limits. Platelets are stable and rising, status post surgery. ASSESSMENT: Status post right knee replacement. PLAN: At this time, I think overall the patient is doing quite well of his knee replacement. Unfortunately, he is having blood upon urination and Dr. Jimenez has been consulted for this. The patient will be undergoing a CT scan today and at this time is trying to produce a urine specimen. We will continue to follow. Job ID: [id number]
[2019-10-24 13:45] LABS: Bacteria/HPF None Seen HPF (None Seen); Bilirubin Negative (Negative); Blood, Urine 1+ (Negative); Clarity Clear (Clear); Glucose, Urine (Dipstick) Normal (Negative); Leukocyte Negative Leu/uL (Negative); Nitrite Negative (Negative); Protein, Urine (Dipstick) Negative (Neg-Trace); Squamous Epithelial None Seen HPF (0-3); Urobilinogen Normal mg/dL (Less than 2); WBC/HPF 0-3 HPF (0-3)
--- NOTE | 2019-10-24 15:09 | CT ---
CT Abdomen Pelvis W WO con History: Hematuria Comparison: None. Findings: Mild scarring lung bases. No pericardial effusion. On the noncontrast portion of the examination there is no nephroureterolithiasis or hydroureteronephr osis. No secondary evidence of a recently passed stone. The liver, spleen, adrenal glands are unremarkable. There is dilatation of the main pancreatic duct a nd accessory duct which appears to drain into the minor papilla. No abnormal enhancing renal lesion. On the delayed phase of contrast no filling defects are appreciat ed within the renal calyces, pelvis by, nor the ureters. Incomplete contrast opacification of the mid and distal left ureter. No filling defect within the posterior urinary bladder. No dilated loops of large or small bowel. Mild superficial soft tissue swelling around the right ante rior thigh. Enthesopathic changes along the right anterior superior iliac spine. Lumbar spine is without acute abnormality. Impression: 1. No nephroureterolithiasis or hydroureteronephrosis. No secondary evidence of a recently passed sto ne. 2. No findings to explain patient's hematuria. 3. 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 4. Mild superficial soft tissue swelling along the right anterior thigh.
[2019-10-24] MEDS: Melatonin 3 MG TAB PO SCH (20:30)
[2019-10-24] MEDS: Atorvastatin Calcium 10 MG TAB PO SCH (20:30)
[2019-10-24] MEDS: Mirtazapine 30 MG Soltab PO SCH (20:30)
[2019-10-24] MEDS: traZODone HCl 50 MG TAB PO SCH (21:14)
[2019-10-25] MEDS: HYDROcodone/Acetaminophen 10/325 mg Tablet PO PRN ×3 (04:14→18:37)
[2019-10-25 05:18] LABS: #Basophils 0.1 thou/uL (0.0-0.2); #Eosinphils 0.3 thou/uL (0.0-0.7); #Lymphocytes 1.5 thou/uL (1.20-3.40); #Neutrophils 7.2 thou/uL (1.40-6.50); %Basophils 0.5 % (0.0-1.0); %Monocytes 10.3 % (0.0-10.0); %Neutrophils 71.1 % (42.0-75.0); Hemoglobin 10.2 g/dL (14.0-18.0); Mean Corpuscular HGB CONC 33.5 g/dL (32.0-36.0); Mean Corpuscular Hemoglobin 30.2 pg (27.0-31.0); Mean Corpuscular Volume 90.3 fL (78.0-98.0); Mean Platelet Volume 8.7 fL (7.4-10.4); Platelet Count 154 thou/uL (130-400); RBC Distribution Width 12.6 % (11.5-14.5); Red Blood Cell (RBC) Count 3.38 mill/uL (4.70-6.10); White Blood Cell (WBC) Count 10.1 thou/uL (4.8-10.8)
[2019-10-25 05:33] LABS: Anion Gap 12 mmol/L (10-20); BUN (Urea Nitrogen) 25 mg/dL (8.4-25.7); Calc. Creatinine Clearance 55 mL/min (70-130); Calcium 8.6 mg/dL (7.8-10.44); Carbon Dioxide 29 mmol/L (23-31); Chloride 99 mmol/L (98-107); Estimated GFR-MDRD 57; Glucose 103 mg/dL (80-115); Potassium 3.6 mmol/L (3.5-5.1); Sodium 136 mmol/L (136-145)
[2019-10-25] MEDS: Famotidine 20 MG TAB PO SCH ×2 (08:13→22:00)
[2019-10-25] MEDS: Allopurinol 100 MG TAB PO SCH ×2 (08:13→22:00)
[2019-10-25] MEDS: Aspirin 81 mg Enteric Coated Tablet PO SCH ×2 (08:14→22:00)
[2019-10-25] MEDS: Senokot S 8.6-50 MG TAB PO SCH ×2 (08:14→22:00)
[2019-10-25] MEDS: Ferrous Gluconate 324 MG TAB PO SCH ×2 (08:14→22:00)
[2019-10-25] MEDS: Multivitamin W/ Minerals 1 TAB PO SCH (08:14)
[2019-10-25] MEDS: Lisinopril/Hydrochlorothiazide 10 mg/12.5 mg Tablet PO SCH (08:15)
--- NOTE | 2019-10-25 09:41 | CON ---
DATE OF CONSULTATION: 10/24/2019 CONSULTING: [facility]. REASON FOR CONSULTATION: Gross hematuria. HISTORY OF PRESENT ILLNESS: Mr. Saravia is a 69-year-old black male, who was admitted to the hospital for a total knee replacement. He already underwent a surgery, which did not require Garcia catheterization. He is voiding on his own, but had gross hematuria yesterday, which is approximately postoperative day 4. This occurred for one episode and then subsequently cleared and he reports now having clear yellow urine again. He denies any dysuria or flank pain. He states he is not having any difficulty urinating except when he is trying to urinate from bed, but states that normally he does not have any urinary difficulties at baseline. He does have a history of gross hematuria many years ago, which was never evaluated, almost 15 years ago. He has no history of urolithiasis, previous urologic surgeries, family history of prostate cancer or bladder cancer, or any previous urologic surgery history. ALLERGIES: NONE. HOME MEDICATIONS: 1. Trazodone. 2. Simvastatin. 3. Mirtazapine. 4. Melatonin. 5. Lisinopril/hydrochlorothiazide. 6. Famotidine. 7. Aspirin. 8. Allopurinol. PAST MEDICAL HISTORY: 1. Hypertension. 2. Chronic kidney disease, stage 3. 3. Hyperlipidemia. 4. Gout. 5. Degenerative joint disease. PAST SURGICAL HISTORY: Very recent total knee replacement on the right. SOCIAL HISTORY: The patient denies any alcohol abuse or illicit drug use. He has remote history of smoking, but quit 15 years ago. FAMILY HISTORY: Noncontributory. REVIEW OF SYSTEMS: A 12-point review of systems reviewed and negative other than what was commented on the HPI. PHYSICAL EXAMINATION: VITAL SIGNS: Temperature 98.8, pulse 79, blood pressure 131/56, saturations 94% on room air, and respirations 16. GENERAL: No apparent distress. Communicative and alert. Appears stated age. Well nourished, well developed. HEENT: Normocephalic, atraumatic. Pupils are symmetric and round. Trachea midline. Moist mucous membranes. CARDIOVASCULAR: Regular rate and rhythm. Normal S1 and S2. Symmetric pulses. CHEST: Nonlabored breathing, symmetric expansion. LUNGS: Clear anteriorly. ABDOMEN: Soft, nontender, and nondistended. Positive bowel sounds. No organomegaly or hernias. : Deferred at this time. EXTREMITIES: No clubbing or cyanosis. The patient does have mild edema of the right leg secondary to postoperative changes. His leg is dressed, and incision was not addressed as this is being followed by the orthopedic surgeons. Range of motion was not tested. NEUROLOGIC: Cranial nerves 2 through 12 grossly intact. There are no obvious focal or sensory motor deficits identified, although the right leg was not fully examined. SKIN: Warm and dry. No rashes or lesions. Good turgor. PSYCHIATRIC: Alert and orient x3. Appropriate mood and affect. LABORATORY EVALUATION: Full set of labs is in the [facility] system, which I reviewed. Of note, the patient's white count is 11.3 with a hemoglobin of 11. Creatinine is currently 1.32 with a GFR of 66. ASSESSMENT AND PLAN: A 69-year-old black male with a spontaneous episode of gross hematuria, which has now resolved. This was unprovoked, and there was no obvious etiology. I would recommend a full hematuria workup given the patient's remote history of smoking. This would involve a CT urogram, urine cytology, PSA, and outpatient cystoscopy. I would recommend deferring on the PSA until outpatient. I will get a urinalysis now. I have talked to the patient about doing a CT scan. He does have chronic kidney disease. I told him we could do a noncontrast CT scan, although the utility is much lower than a contrasted scan. His GFR is still adequate to allow for contrast, although he will have a mild acute kidney injury with contrast. I have requested a low-dose contrasted scan with a 500 mL bolus both before and after the CT as well as aggressive hydration on the patient and try and flush out any contrast. I do expect his creatinine to rise slightly, but this should spontaneously resolve on its own. Once we have the results, I will see the patient back as an outpatient for outpatient cystoscopy. We will get a PSA before that visit. Any further treatment will be based on findings during either the CT or during the cystoscopy. Job ID: [id number]
--- NOTE | 2019-10-25 13:17 | PRG ---
DATE OF SERVICE: 10/25/2019 SUBJECTIVE: J Luis is now postop day #6 from a right total knee arthroplasty. Dr. Jimenez has evaluated his hematuria. He received CT examination of bladder and kidneys with contrast. His creatinine bumped to 1.5 up from 1.3 yesterday. This is to be expected. Dr. Jimenez has also increased his fluid both p.o. and IV in an attempt to flush his kidney and bring his creatinine down. The patient has been ambulating 60 to 70 feet. PHYSICAL EXAMINATION: His incision is clean. No strike through. He is neurovascularly intact in right lower extremity. IMPRESSION: 1. Postop day #6, right total knee arthroplasty. 2. Acute kidney injury with hematuria. PLAN: Repeat CBC with basic metabolic profile tomorrow morning and as soon as his creatinine begins to trend down, he will be stable for discharge home and I discussed this with his . Job ID: [id number]
--- NOTE | 2019-10-25 15:35 | PDOC.HOSPP ---
- Subjective Encounter Date: 10/25/19 Encounter Time: 08:00 Subjective: Pt seen for followup re: hypertension. Feels well, no complaints. - Objective Vital Signs & Weight: Vital Signs (12 hours) Temp Pulse Resp BP BP Pulse Ox 10/25/19 08:15 74 126/70 10/25/19 08:00 93 L 10/25/19 07:18 98.0 F 74 16 126/70 93 L Weight Admit Weight 179 lb Weight 179 lb I&O: 10/24/19 10/25/19 10/26/19 06:59 06:59 06:59 Intake Total 1400 2565 Output Total 450 875 Balance 950 1690 Result Diagrams: 10/25/19 04:44 10/25/19 04:44 Additional Labs: Labs and MARs reviewed by ia Hospitalist ROS - Review of Systems Cardiovascular: denies: chest pain, palpitations, orthopnea, paroxysmal noc. dyspnea, edema, light headedness Gastrointestinal: denies: nausea, vomiting, abdominal pain, diarrhea, constipation, melena, hematochezia Genitourinary: denies: dysuria, frequency, incontinence, hematuria, retention - Medication Medications: Active Medications Generic Name Dose Route Start Last Admin Trade Name Freq PRN Reason Stop Dose Admin Hydrocodone Bitart/Acetaminophen 2 tab 10/20/19 15:06 10/25/19 09:36 Henefer 10/325 PO 2 tab Q4H PRN Administration PAIN (4-6) Allopurinol 100 mg 10/20/19 21:00 10/25/19 08:13 Zyloprim PO 100 mg BID ARTURO Administration Amlodipine Besylate 5 mg 10/20/19 19:45 10/23/19 09:41 Norvasc PO 5 mg DAILY PRN Administration SBP GREATER THAN 160 Aspirin 81 mg 10/20/19 21:00 10/25/19 08:14 Ecotrin PO Not Given BID ARTURO Atorvastatin Calcium 10 mg 10/20/19 21:00 10/24/19 20:30 Lipitor PO 10 mg HS ARTURO Administration Famotidine 20 mg 10/20/19 21:00 10/25/19 08:13 Pepcid PO 20 mg BID ARTURO Administration Ferrous Gluconate 324 mg 10/20/19 21:00 10/25/19 08:14 Fergon PO 324 mg BID ARTURO Administration Lisinopril/HCTZ 1 tab 10/21/19 09:00 10/25/19 08:15 Prinizide 10-12.5 PO 1 tab DAILY ARTURO Administration Iron/Minerals/Multivitamins 1 tab 10/21/19 09:00 10/25/19 08:14 Theragran M PO 1 tab DAILY ARTURO Administration Melatonin 6 mg 10/20/19 21:00 10/24/19 20:30 Melatonin PO 6 mg HS ARTURO Administration Mirtazapine 60 mg 10/20/19 21:00 10/24/19 20:30 Remeron Soltab PO 60 mg HS ARTURO Administration Senna/Docusate Sodium 2 tab 10/20/19 21:00 10/25/19 08:14 Senokot S PO 2 tab BID ARTURO Administration Sodium Chloride 10 ml 10/20/19 15:14 10/21/19 19:19 Flush - Normal Saline IVF 10 ml PRN PRN Administration Saline Flush Tramadol HCl 50 mg 10/20/19 15:15 10/23/19 09:42 Ultram PO 50 mg Q6H PRN Administration Mild Pain (1-3) Tramadol HCl 100 mg 10/20/19 15:16 10/23/19 18:17 Ultram PO 100 mg Q6H PRN Administration Moderate Pain 4-6 Trazodone HCl 200 mg 10/20/19 21:00 10/24/19 21:14 Desyrel PO 200 mg HS ARTURO Administration - Exam General Appearance: NAD Eye: anicteric sclera ENT: moist mucosa Neck: supple Heart: RRR Respiratory: CTAB Gastrointestinal: soft, non-tender Extremities: no cyanosis Psychiatric: normal affect, normal behavior Hosp A/P - Plan Hosp A/P Assessment: HTN CKD 3 HLD Gout DJD Hematuria resolved - Plan Urology consult appreciated. HTN controlled Cont PT/OT
[2019-10-25] MEDS ORDERED: Melatonin 3 MG TAB PO SCH (21:00)
[2019-10-25] MEDS ORDERED: traZODone HCl 50 MG TAB PO SCH (21:00)
[2019-10-25] MEDS ORDERED: Atorvastatin Calcium 10 MG TAB PO SCH (21:00)
[2019-10-25] MEDS ORDERED: Mirtazapine 30 MG Soltab PO SCH (21:00)
[2019-10-25] MEDS ORDERED: HYDROcodone/Acetaminophen 10/325 mg Tablet PO PRN ×2 (21:52→21:53)
[2019-10-25] MEDS ORDERED: Promethazine HCl 25 MG/ML VIAL IM PRN (21:52)
[2019-10-25] MEDS ORDERED: diphenhydrAMINE 25 MG CAP PO PRN (21:53)
[2019-10-25] MEDS ORDERED: traMADol HCl 50 MG TAB PO PRN ×2 (21:56)
[2019-10-25] MEDS ORDERED: Ondansetron PF 4 MG/2 ML Vial IVP PRN (21:56)
[2019-10-25] MEDS ORDERED: Acetaminophen 325 MG TAB PO PRN (21:57)
[2019-10-25] MEDS ORDERED: Polyethylene Glycol 3350 17 GM Packet PO PRN (21:57)
[2019-10-25] MEDS ORDERED: hydrALAZINE 20 MG/ML VIAL SLOW IVP PRN (21:57)
[2019-10-25] MEDS ORDERED: Fentanyl 100 MCG/2 ML VIAL SLOW IVP PRN (21:57)
[2019-10-25] MEDS ORDERED: Zolpidem Tartrate 5 MG TAB PO PRN (21:57)
[2019-10-25] MEDS ORDERED: cloNIDine 0.1 MG TAB PO PRN (21:57)
[2019-10-25] MEDS ORDERED: Amlodipine 5 MG TAB PO PRN (21:57)
[2019-10-26 05:13] LABS: #Eosinphils 0.4 thou/uL (0.0-0.7); #Lymphocytes 1.5 thou/uL (1.20-3.40); #Neutrophils 7.9 thou/uL (1.40-6.50); %Basophils 0.4 % (0.0-1.0); %Eosinophils 3.5 % (0.0-10.0); %Lymphocytes 13.9 % (21.0-51.0); %Monocytes 8.9 % (0.0-10.0); %Neutrophils 73.3 % (42.0-75.0); Hemoglobin 10.7 g/dL (14.0-18.0); Mean Corpuscular HGB CONC 32.7 g/dL (32.0-36.0); Mean Corpuscular Hemoglobin 29.7 pg (27.0-31.0); Mean Corpuscular Volume 90.9 fL (78.0-98.0); Mean Platelet Volume 8.3 fL (7.4-10.4); Platelet Count 185 thou/uL (130-400); RBC Distribution Width 12.5 % (11.5-14.5); Red Blood Cell (RBC) Count 3.59 mill/uL (4.70-6.10); White Blood Cell (WBC) Count 10.8 thou/uL (4.8-10.8)
[2019-10-26 05:20] LABS: Anion Gap 12 mmol/L (10-20); BUN (Urea Nitrogen) 21 mg/dL (8.4-25.7); Calc. Creatinine Clearance 56 mL/min (70-130); Calcium 9.1 mg/dL (7.8-10.44); Carbon Dioxide 29 mmol/L (23-31); Chloride 99 mmol/L (98-107); Estimated GFR-MDRD 57; Glucose 107 mg/dL (80-115); Sodium 136 mmol/L (136-145)
[2019-10-26] MEDS: Allopurinol 100 MG TAB PO SCH ×2 (07:35→08:54)
[2019-10-26] MEDS: Aspirin 81 mg Enteric Coated Tablet PO SCH ×2 (07:36→08:54)
[2019-10-26] MEDS: Ferrous Gluconate 324 MG TAB PO SCH ×2 (07:36→08:54)
[2019-10-26] MEDS: Mirtazapine 30 MG Soltab PO SCH (07:36)
[2019-10-26] MEDS: Melatonin 3 MG TAB PO SCH (07:36)
[2019-10-26] MEDS: Famotidine 20 MG TAB PO SCH ×2 (07:36→08:54)
[2019-10-26] MEDS: Atorvastatin Calcium 10 MG TAB PO SCH (07:36)
[2019-10-26] MEDS: Senokot S 8.6-50 MG TAB PO SCH ×2 (07:45→08:54)
[2019-10-26] MEDS: traZODone HCl 50 MG TAB PO SCH (07:45)
[2019-10-26] MEDS ORDERED: Lisinopril/Hydrochlorothiazide 10 mg/12.5 mg Tablet PO SCH (09:00)
[2019-10-26] MEDS ORDERED: Aspirin 81 mg Enteric Coated Tablet PO SCH (09:00)
[2019-10-26] MEDS ORDERED: hydrALAZINE 25 MG TAB PO SCH (09:00)
[2019-10-26] MEDS ORDERED: Multivitamin W/ Minerals 1 TAB PO SCH (09:00)
[2019-10-26] MEDS ORDERED: Amlodipine 5 MG TAB PO SCH (09:00)
[2019-10-26 10:14] VITALS: BP 132/72; TEMP 98.2
--- NOTE | 2019-10-27 04:33 | DIS ---
DATE OF ADMISSION: 10/21/2019 DATE OF DISCHARGE: 10/26/2019 ADMISSION DIAGNOSIS: End-stage tricompartmental osteoarthritis, right knee. DISCHARGE DIAGNOSES: 1. End-stage tricompartmental osteoarthritis, right knee. 2. Acute renal insufficiency superimposed on chronic renal insufficiency and hematuria. CONSULTANTS: Dr. Flo Jimenez, [facility], and [facility]. BRIEF CLINICAL HISTORY: J Luis is a 69-year-old male, who was admitted to [facility], underwent the above elective procedure on the date of admission without intra-, jack-, or postoperative complication. His hospital course was significant for inability to meet milestones of independence in ADLs. Therefore, a skilled consult was placed, but disposition was uncertain prior to the weekend. Over the weekend, the patient developed gross hematuria. Dr. Jimenez was consulted for evaluation of this. CT examination with contrast of the kidneys, ureter, and bladder was performed, which did not reveal obstructive issue or stones. Dr. Jimenez recommended that he could see the patient back in clinic and discuss an outpatient cystoscope. Otherwise, the patient continued to convalesce and improved throughout his hospitalization. At the time of discharge, the patient is afebrile, he is ambulatory without assistance in an independent fashion in a full weightbearing fashion, tolerating regular diet, voiding without difficulty. His incision is clean and closed without any erythema. DISCHARGE MEDICATIONS: Please see medication reconciliation form. We will be happy to see the patient on an as-needed basis between now and his next scheduled appointment in 2 to 3 weeks. CONDITION ON DISCHARGE: Stable. PROGNOSIS: Good. FOLLOWUP: The patient will be scheduled for followup with Dr. Jimenez after he calls and schedules appointment. Job ID: [id number]
== END 2019-10-26 12:02 | disposition home or self-care (01) | DRG 470 ==
LOC: SDC 05:36 → SJJU 06:59 → EDSTATUS 08:30 → SJJU 10:15 → SDC 10-20 05:35 → SJJU 10-20 11:06 → UNDOADMIN 10-20 11:06 → SDC 10-21 20:00 → SJJU 10-21 20:00 → SDC 10-23 06:30 → SJJU 10-23 06:30
PROVIDERS: ADMIT Orthopaedic Surgery; ATTEND Orthopaedic Surgery
PROC: 0SRC0J9 Replacement of Right Knee Joint with Synthetic Substitute, Cemented, Open Approach (ICD-10-PCS; principal; 2019-10-21)
PROC: 8E0YXBZ Computer Assisted Procedure of Lower Extremity (ICD-10-PCS; 2019-10-21)
DX: M17.11 Unilateral primary osteoarthritis, right knee (principal); N17.9 Acute kidney failure, unspecified; E78.5 Hyperlipidemia, unspecified; J44.9 Chronic obstructive pulmonary disease, unspecified; F32.9 Major depressive disorder, single episode, unspecified; F17.200 Nicotine dependence, unspecified, uncomplicated; F41.9 Anxiety disorder, unspecified; M10.9 Gout, unspecified; K21.9 Gastro-esophageal reflux disease without esophagitis; I12.9 Hypertensive chronic kidney disease with stage 1 through stage 4 chronic kidney disease, or unspecified chronic kidney disease; N18.3 Chronic kidney disease, stage 3 (moderate); Z85.72 Personal history of non-Hodgkin lymphomas; Z79.82 Long term (current) use of aspirin; Z79.899 Other long term (current) drug therapy; Z99.89 Dependence on other enabling machines and devices; R31.0 Gross hematuria
CPT/HCPCS: 36415; 74178; 80048; 81001; 85025; 85027; C1713; C1776; J0670; J0690; J1100; J1885; J2001; J2250; J2405; J2704; J2795; J3010; J3490; J7050; Q9967; S0028

== ENCOUNTER → 2024-10-11 | Outpatient (CLI) | payer OTHER | LOC: PET 09:30 | PROVIDERS: ATTEND Internal Medicine Hematology & Oncology | DX: C82.05 Follicular lymphoma grade I, lymph nodes of inguinal region and lower limb (principal) | CPT/HCPCS: 78815; A9552 ==